=== PATIENT | female | born 1990 | race Caucasian/White ===

== ENCOUNTER 2019-03-09 21:10 | Emergency (ER) | payer BC ==
--- NOTE | 2019-03-09 21:54 | EDPHY ---
H & P Stated Complaint: see nursing note. from for back pain, screaming and crying at triage Time Seen by Provider: 03/09/19 21:54 HPI/ROS: HPI CHIEF COMPLAINT: Skin Sensitivity, Joint Pain all over, low back pain. HISTORY OF PRESENT ILLNESS: 28-year-old female, she arrives to the emergency room complaining of joint pain throughout, as well as low back pain. Additionally the patient complains of skin sensitivity. She reports to me she had a normal day today. Around 515pm she went out to work event, and then subsequently went out to dinner to have drinks. States she was going home from drinks this evening, around 7:00 p.m. She started developing low back pain, joint pain throughout. Skin sensitivity. States extreme pain. She did come to the emergency room. She denies fever, denies headache, denies neck pain, denies neck stiffness, denies chest pain, denies shortness of breath, denies fever or vomiting. No diarrhea no abdominal pain. Her main complaint is skin sensitivity, and joint pain and low back pain. Past Medical History: History of Lyme disease. Past Surgical History: Denies significant surgical history Social History: Occasional alcohol use socially. No drug. No tobacco. Family History: Noncontributory ROS REVIEW OF SYSTEMS: 10 Systems were reviewed and negative with the exception of the elements mentioned in the history of present illness. Exam Constitutional appears well nontoxic no acute distress, triage nursing summary reviewed, vital signs reviewed, awake/alert. Tachycardic upon arrival. Eyes normal conjunctivae and sclera, EOMI, PERRLA. HENT normal inspection, atraumatic, moist mucus membranes, no epistaxis, neck supple/ no meningismus, no raccoon eyes. Respiratory clear to auscultation bilaterally, normal breath sounds, no respiratory distress, no wheezing. Cardiovascular tachycardia, regular rhythm, no murmur, no edema, distal pulses normal. Gastrointestinal soft, non-tender, no rebound, no guarding, normal bowel sounds, no distension, no pulsatile mass. Genitourinary no CVA tenderness. Musculoskeletal no midline vertebral tenderness, full range of motion, no calf swelling, no tenderness of extremities, no meningismus, good pulses, neurovascularly intact. Skin pink, warm, & dry, no rash, skin atraumatic. Neurologic awake, alert and oriented x 3, AAOx3, moves all 4 extremities equally, motor intact, sensory intact, CN II-XII intact, normal cerebellar, normal vision, normal speech. Psychiatric normal mood/affect. Heme/Lymph/Immune no lymphadenopathy. Differential Diagnosis: Includes but is not limited to in a particular order acute febrile illness, dehydration, electrolyte disturbance, acute infection, bacteremia, pneumonia, UTI Medical Decision Making: Plan for this patient IV establishment IV fluid bolus , blood cultures basic labs, inflammatory markers, IV fluids, Toradol for pain control, chest x-ray re-evaluate. Re-evaluation: Chest x-ray shows left lower lobe pneumonia called to me by Dr. Butt Lactic acid and blood cultures pulled. The patient is not hypoxic. Patient getting IV fluids at this time. Chest x-ray shows left lower lobe pneumonia. Urinalysis also concerning for UTI. Urine culture will be sent. I have ordered the patient IV Rocephin IV azithromycin. [id number]: Patient is re-evaluated resting comfortably. She is afebrile here. Is noted her vital signs are heart rate improved down to 95. Additionally she is not hypotensive, no fever here, no hypoxia room air saturations 97%. Her lab work, chest x-ray and urinalysis reviewed. Her urinalysis concerning for urinary tract infection. Urine culture was sent. Additionally she had blood culture sent. Chest x-ray was read by Radiology is a left lower lobe pneumonia. Clinically on exam the patient has no significant cough, no fever, no hypoxia, no elevated white blood cell count. I discussed the results with her about her urine and chest x-ray. I will place on azithromycin to cover her lung, and Keflex for her urine. I will allowed to go home given her vitals are stable and she appears well nontoxic in no acute distress. I did discuss strict return precautions with her and her mom at bedside. They understand return emergency room if she has worsening symptoms includes high fever, vomiting, not doing well this includes shortness of breath, , vomiting, high fever. They are comfortable this plan. I do recommend she rest, stay well-hydrated drink lots of fluids. Antibiotics as prescribed and return if worse. Source: Patient - Personal History Current Tetanus/Diphtheria Vaccine: Unsure Current Tetanus Diphtheria and Acellular Pertussis (TDAP): Unsure - Medical/Surgical History Hx Asthma: No Hx Chronic Respiratory Disease: No Hx Diabetes: No Hx Cardiac Disease: No Hx Renal Disease: No Hx Cirrhosis: No Hx Alcoholism: No Hx HIV/AIDS: No Hx Splenectomy or Spleen Trauma: No Other PMH: Ciliac disease, endrometriosis, lyme, GERD - Social History Smoking Status: Never smoked Constitutional: Initial Vital Signs Temperature (C) 36.8 C 03/09/19 21:21 Heart Rate 135 H 03/09/19 21:21 Respiratory Rate 20 03/09/19 21:21 Blood Pressure 144/92 H 03/09/19 21:21 O2 Sat (%) 97 03/09/19 21:21 O2 Delivery Mode Room Air Allergies/Adverse Reactions: ANIMAL DANDER,PLANTS Allergy (Uncoded 03/09/19 21:15) RHINITIS antidepressants Allergy (Uncoded 03/09/19 21:15) MOLDS, GRASSES, TREES Allergy (Uncoded 03/09/19 21:15) RHINITIS Home Medications: Medication Instructions Recorded NORETH A-ET ESTRA/FE FUMARATE 07/06/13 [LOESTRIN 24 FE TABLET] Azithromycin [Zithromax] 250 mg PO DAILY #6 tab 03/10/19 Cephalexin [Keflex] 500 mg PO Q6H #28 cap 03/10/19 Medical Decision Making - Diagnostics Imaging Results: Imaging Impressions Chest X-Ray 03/09/19 22:17 Impression: Left lower lobe pneumonia. - Data Points Laboratory Results: Laboratory Results 03/09/19 22:30 03/09/19 22:30 03/09/19 03/09/19 03/09/19 23:39 22:43 22:30 WBC RBC Hgb Hct MCV MCH MCHC RDW Plt Count MPV Neut % (Auto) Lymph % (Auto) Gem % (Auto) Eos % (Auto) Baso % (Auto) Nucleat RBC Rel Count Absolute Neuts (auto) Absolute Lymphs (auto) Absolute Monos (auto) Absolute Eos (auto) Absolute Basos (auto) Absolute Nucleated RBC Immature Gran % Immature Gran # ESR VBG Lactic Acid 1.0 mmol/L mmol/L (0.7-2.1) Sodium Potassium Chloride Carbon Dioxide Anion Gap BUN Creatinine Estimated GFR Glucose Calcium Total Bilirubin Conjugated Bilirubin Unconjugated Bilirubin AST ALT Alkaline Phosphatase POC Troponin I 0.00 ng/mL ng/mL (0.00-0.08) C-Reactive Protein Total Protein Albumin Lipase Beta HCG, Qual NEGATIVE Specimen Hemolysis Urine Color Urine Appearance Urine pH Ur Specific [place] Urine Protein Urine Ketones Urine Blood Urine Nitrate Urine Bilirubin Urine Urobilinogen Ur Leukocyte Esterase Urine RBC Urine WBC Ur Epithelial Cells Urine Bacteria Urine Mucus Urine Glucose 03/09/19 03/09/19 03/09/19 22:30 22:30 21:35 WBC 9.44 10^3/uL 10^3/uL (3.80-9.50) RBC 4.25 10^6/uL 10^6/uL (4.18-5.33) Hgb 14.1 g/dL g/dL (12.6-16.3) Hct 40.5 % % (38.0-47.0) MCV 95.3 fL fL (81.5-99.8) MCH 33.2 pg pg (27.9-34.1) MCHC 34.8 g/dL g/dL (32.4-36.7) RDW 12.2 % % (11.5-15.2) Plt Count 202 10^3/uL 10^3/uL (150-400) MPV 10.1 fL fL (8.7-11.7) Neut % (Auto) 76.6 % H % (39.3-74.2) Lymph % (Auto) 13.9 % L % (15.0-45.0) Gem % (Auto) 6.6 % % (4.5-13.0) Eos % (Auto) 2.2 % % (0.6-7.6) Baso % (Auto) 0.4 % % (0.3-1.7) Nucleat RBC Rel Count 0.0 % % (0.0-0.2) Absolute Neuts (auto) 7.23 10^3/uL H 10^3/uL (1.70-6.50) Absolute Lymphs (auto) 1.31 10^3/uL 10^3/uL (1.00-3.00) Absolute Monos (auto) 0.62 10^3/uL 10^3/uL (0.30-0.80) Absolute Eos (auto) 0.21 10^3/uL 10^3/uL (0.03-0.40) Absolute Basos (auto) 0.04 10^3/uL 10^3/uL (0.02-0.10) Absolute Nucleated RBC 0.00 10^3/uL 10^3/uL (0-0.01) Immature Gran % 0.3 % % (0.0-1.1) Immature Gran # 0.03 10^3/uL 10^3/uL (0.00-0.10) ESR 16 MM/HR MM/HR (0-20) VBG Lactic Acid Sodium 136 mEq/L mEq/L (135-145) Potassium 4.5 mEq/L mEq/L (3.5-5.2) Chloride 105 mEq/L mEq/L (97-110) Carbon Dioxide 20 mEq/l L mEq/l (22-31) Anion Gap 11 mEq/L mEq/L (6-14) BUN 12 mg/dL mg/dL (7-23) Creatinine 0.7 mg/dL mg/dL (0.6-1.0) Estimated GFR > 60 Glucose 102 mg/dL H mg/dL (70-100) Calcium 9.5 mg/dL mg/dL (8.5-10.4) Total Bilirubin 0.6 mg/dL mg/dL (0.1-1.4) Conjugated Bilirubin 0.5 mg/dL mg/dL (0.0-0.5) Unconjugated Bilirubin 0.1 mg/dL mg/dL (0.0-1.1) AST 34 IU/L IU/L (14-46) ALT 29 IU/L IU/L (9-52) Alkaline Phosphatase 62 IU/L IU/L (38-126) POC Troponin I C-Reactive Protein 10.8 mg/L H mg/L (<10.0) Total Protein 7.4 g/dL g/dL (6.3-8.2) Albumin 4.5 g/dL g/dL (3.5-5.0) Lipase 108 IU/L IU/L (23-300) Beta HCG, Qual Specimen Hemolysis 104 Urine Color PALE YELLOW Urine Appearance CLEAR Urine pH 7.0 (5.0-7.5) Ur Specific [place] 1.005 (1.002-1.030) Urine Protein NEGATIVE (NEGATIVE) Urine Ketones NEGATIVE (NEGATIVE) Urine Blood NEGATIVE (NEGATIVE) Urine Nitrate NEGATIVE (NEGATIVE) Urine Bilirubin NEGATIVE (NEGATIVE) Urine Urobilinogen NEGATIVE EU EU (0.2-1.0) Ur Leukocyte Esterase 2+ H (NEGATIVE) Urine RBC 3-5 /hpf H /hpf (0-3) Urine WBC 1-3 /hpf /hpf (0-3) Ur Epithelial Cells TRACE /lpf /lpf (NONE-1+) Urine Bacteria 3+ /hpf H /hpf (NONE SEEN) Urine Mucus TRACE /lpf /lpf (NONE-1+) Urine Glucose NEGATIVE (NEGATIVE) Medications Given: Discontinued Medications Sodium Chloride (Ns) 1,000 mls @ 0 mls/hr IV EDNOW ONE; Wide Open PRN Reason: Protocol Stop: 03/09/19 22:18 Last Admin: 03/09/19 22:35 Dose: 1,000 mls Sodium Chloride (Ns) 1,000 mls @ 0 mls/hr IV EDNOW ONE; Wide Open PRN Reason: Protocol Stop: 03/09/19 22:18 Last Admin: 03/09/19 22:36 Dose: 1,000 mls Azithromycin 500 mg/ Sodium (Chloride) 255 mls @ 255 mls/hr IV EDNOW ONE PRN Reason: Protocol Stop: 03/09/19 23:49 Last Admin: 03/09/19 23:43 Dose: 255 mls Ceftriaxone Sodium 2 gm/ (Sodium Chloride) 50 mls @ 100 mls/hr IV EDNOW ONE PRN Reason: Protocol Stop: 03/09/19 23:19 Last Admin: 03/09/19 23:31 Dose: 50 mls Ketorolac Tromethamine (Toradol) 15 mg IVP EDNOW ONE Stop: 03/09/19 22:18 Last Admin: 03/09/19 22:35 Dose: 15 mg Ondansetron HCl (Zofran) 4 mg IVP EDNOW ONE Stop: 03/09/19 22:18 Last Admin: 03/09/19 22:35 Dose: Not Given Point of Care Test Results: Chemistry 03/09/19 22:43 POC Troponin I 0.00 ng/mL ng/mL (0.00-0.08) Departure - Departure Disposition: Home, Routine, Self-Care Clinical Impression: UTI (urinary tract infection), Pneumonia Condition: Good Instructions: Urinary Tract Infection in Women (ED), Pneumonia (ED) Additional Instructions: 1. Rest and stay well-hydrated drink lots of fluids. 2. Antibiotics as prescribed. 3. Return to the emergency room if there is worsening symptoms includes high fever, vomiting, not doing well. Referrals: Amaris Gamble MD [Primary Care Provider] - As per Instructions Prescriptions: Azithromycin [Zithromax] 250 mg PO DAILY #6 tab Cephalexin [Keflex] 500 mg PO Q6H #28 cap
[2019-03-09] MEDS ORDERED: ONDANSETRON 4 MG/2 ML VIAL IVP ONE (22:17)
[2019-03-09] MEDS ORDERED: KETOROLAC 15 MG/1 ML SDV IVP ONE (22:17)
[2019-03-09] MEDS ORDERED: NS 1,000 ML IV ONE ×2 (22:17)
[2019-03-09 22:47] LABS: PLATELET COUNT 202 10^3/uL (150-400)
[2019-03-09] MEDS ORDERED: AZITHROMYCIN IV 500 MG in NS 250 ML IV ONE (22:50)
[2019-03-10 01:00] VITALS: BP 111/59
== END 2019-03-10 01:00 | disposition home or self-care (01) ==
DX: N39.0 Urinary tract infection, site not specified (principal); J18.1 Lobar pneumonia, unspecified organism; E86.9 Volume depletion, unspecified
CPT/HCPCS: 84484-ER; 96365; J0456; J0696; J1885; J2405